=== PATIENT | male | born 1985 | race Caucasian/White ===

== ENCOUNTER 2020-08-05 10:28 | Emergency (ER) | payer MEDICAID, OTHER ==
[~2020-08-05] VITALS: Ht 170.1 cm; Wt 65.9 kg
[2020-08-05 10:35] VITALS: BP 138/89
[2020-08-05] MEDS ORDERED: KETOROLAC 60 MG/2 ML VIAL IM ONE (10:45)
--- NOTE | 2020-08-05 10:54 | ED Lower Extremity ---
General Chief Complaint: Lower Extremity Stated Complaint: RT ANKLE INJ Source: patient Exam Limitations: no limitations History of Present Illness Date Seen by Provider: Aug 05, 2020 Time Seen by Provider: 10:35 Initial Comments Patient presents ER by private conveyance from home with chief complaint that yesterday evening while doing some yard work for his sister he stepped in a soft spot and twisted his right ankle. He has a history of surgery on that right ankle years ago in [place] where he lives. He had an elevated and iced last night and has not taken any medicines for the pain. He rates it as an 8 out of 10. He just wants to make sure the hardware is okay. No other serious medical issues. Allergies and Home Medications Allergies Coded Allergies: No Known Drug Allergies (Unverified , 08/05/20) Home Medications No Active Prescriptions or Reported Meds Patient Home Medication List Home Medication List Reviewed: Yes Review of Systems Constitutional: No chills, No diaphoresis EENTM: No ear discharge, No ear pain Respiratory: No cough, No short of breath Cardiovascular: No chest pain, No palpitations Past Tseskhj-Ednmdr-Slcqnn Hx Patient Social History Alcohol Use: Denies Use Recreational Drug Use: No Recent Foreign Travel: No Contact w/Someone Who Travel: No Physical Exam Vital Signs Vital Signs - First Documented 08/05/20 10:35 Temp 36.7 Pulse 91 Resp 18 B/P (MAP) 138/89 (105) Pulse Ox 100 O2 Delivery Room Air Capillary Refill : Height, Weight, BMI Height: '" Weight: lbs. oz. kg; BMI Method: General Appearance: WD/WN, mild distress HEENT: PERRL/EOMI, pharynx normal Neck: full range of motion, normal inspection Cardiovascular: normal peripheral pulses, regular rate, rhythm Knees: bilateral knee non-tender, bilateral knee normal inspection, bilateral knee normal range of motion Ankles: bilateral ankle normal inspection, bilateral ankle normal range of motion; left ankle no evidence of injury; right ankle bone tenderness (Posterior lateral and medial malleoli are mildly tender to palpation), right ankle other (Negative for swelling, erythema, deformity. Previous healed scars) Feet: bilateral foot non-tender, bilateral foot normal inspection, bilateral foot normal range of motion, bilateral foot no evidence of injury Neurologic/Tendon: normal sensation, normal motor functions, normal tendon functions, responds to pain, no evidence tendon injury Progress/Results/Core Measures Results/Orders My Orders Orders - LIDA TANG Ankle 3 View Right (08/05/20 10:44) Ketorolac Injection (Toradol Injection) (08/05/20 10:45) Medications Given in ED Current Medications Medications Dose Ordered Sig/Shweta Route Start Time Stop Time Status Last Admin Dose Admin Ketorolac Tromethamine 60 mg ONCE ONCE IM 08/05/20 10:45 08/05/20 10:46 DC 08/05/20 10:58 60 MG Vital Signs/I&O 08/05/20 08/05/20 10:35 10:58 Temp 36.7 36.7 Pulse 91 Resp 18 B/P (MAP) 138/89 (105) Pulse Ox 100 O2 Delivery Room Air Progress Progress Note #1: Time: 10:56 Progress Note Toradol for pain. Will encourage ice, wrapping elevation and get some x-rays Progress Note #2: Time: 12:24 Progress Note From the time patient was dismissed to the time that staff could get in and provide him with boots, discharge paperwork, crutches the patient elected to leave. Diagnostic Imaging Diagonstic Imaging: Xray Plain Films/CT/US/NM/MRI: ankle (r) Comments NAME: BLAS MOOENY REC#: [id number] PT STATUS: REG ER : 1985 PHYSICIAN: LIDA TANG MD ADMIT DATE: 08/05/20/ER FS Signed Date of Exam:08/05/20 ANKLE 3 VIEW RIGHT EXAMINATION: Right ankle radiographs, 3 views. COMPARISON: None. HISTORY: 35-year-old male, injury. Right ankle pain. FINDINGS: There are fractures of both syndesmotic screws. There are additional fixation screws in the distal tibia which are intact including medial malleolar screws. There is no tibiotalar joint effusion. There is a tiny calcaneal heel spur. The alignment of the ankle mortise is unremarkable. There is no identified acute fracture. IMPRESSION: 1. Fracture of both syndesmotic screws. Additional fixation screws are intact. 2. No identified acute osseous fracture. 3. Unremarkable alignment of the ankle mortise. Dictated by: Dictated on workstation # [id number] Dict: 08/05/20 1055 Trans: 08/05/20 1111 [facility] [id number] Interpreted by: ANIKA WHEAT MD Electronically signed by: ANIKA WHEAT MD 08/05/20 1111 Reviewed: Reviewed by Me Departure Impression Primary Impression: Ankle sprain Qualified Codes: S93.401A - Sprain of unspecified ligament of right ankle, initial encounter Disposition: HOME, SELF-CARE Condition: Stable Departure-Patient Inst. Decision time for Depature: 11:24 Patient Instructions: Ankle Sprain (DC) Add. Discharge Instructions: You appear to have a sprain of your ankle. There are couple of fractured screws but they do not seem to be recent. The joint is held together appropriately. I would suggest you take a copy of the imaging from today to get your primary care doctor or the surgeon and have him compare it to previous imaging to see if there is any changes. Wear boot for the first 1 to 2 weeks as necessary while walking. Use the crutches as necessary for the next 1 to 2 weeks. Aleve 2 capsules twice a day on a scheduled for pain control. Tylenol 1000 mg every 8 hours as necessary for breakthrough pain. Topical creams such as icy hot, Biofreeze, capsaicin oil etc. as necessary for pain. Keep your ankle elevated above the level of your heart when not in use and rest when possible. Ice applied to your ankle for 20 minutes every 2 hours for the first 2 days can help reduce pain and swelling as well. All discharge instructions reviewed with patient and/or family. Voiced understanding. Scripts No Active Prescriptions or Reported Meds LIDA TANG Aug 05, 2020 10:54
--- NOTE | 2020-08-05 11:07 | Diagnostic Imaging Report ---
EXAMINATION: Right ankle radiographs, 3 views. COMPARISON: None. HISTORY: 35-year-old male, injury. Right ankle pain. FINDINGS: There are fractures of both syndesmotic screws. There are additional fixation screws in the distal tibia which are intact including medial malleolar screws. There is no tibiotalar joint effusion. There is a tiny calcaneal heel spur. The alignment of the ankle mortise is unremarkable. There is no identified acute fracture. IMPRESSION: 1. Fracture of both syndesmotic screws. Additional fixation screws are intact. 2. No identified acute osseous fracture. 3. Unremarkable alignment of the ankle mortise. Dictated by: Dictated on workstation # [id number]
== END 2020-08-05 11:55 | disposition left against medical advice (07) ==
LOC: ER FS 10:32
DX: S93.401A Sprain of unspecified ligament of right ankle, initial encounter (principal); X50.1XXA Overexertion from prolonged static or awkward postures, initial encounter
CPT/HCPCS: 73610; 99283

== ENCOUNTER 2022-01-23 09:59 | Emergency (ER) | payer SELFPAY ==
[~2022-01-23] VITALS: Ht 170 cm; Wt 68.0 kg
[2022-01-23] MEDS ORDERED: IBUPROFEN 800 MG (MOTRIN) TAB PO STA (10:10)
[2022-01-23] MEDS ORDERED: cefTRIAXone 1,000 MG VIAL IM STA (10:10)
[2022-01-23] MEDS ORDERED: HYDROcodone/APAP 5 MG/325 MG (LORTAB) TAB PO STA (10:10)
[2022-01-23] MEDS ORDERED: LIDOCAINE 1% INJ 20 ML VIAL INJ ONE (10:15)
[2022-01-23] MEDS ORDERED: LIDOCAINE 1% INJ 50 ML (XYLOCAINE) VIAL ONE (10:16)
--- NOTE | 2022-01-23 10:18 | ED Integumentary General ---
General Chief Complaint: Skin/Wound Problems Stated Complaint: RT ARM WOUND Source: patient History of Present Illness Date Seen by Provider: January 23, 2022 Time Seen by Provider: 10:02 Initial Comments 36-year-old male presenting with complaints of possible spider bite to his right arm. He states that for the last 2 days he has had swelling and redness on his arm. He has a pustule to the right forearm that he has had some drainage from. He denies fever or chills. He was concerned that he had been bitten by a poisonous spider. He follows with a provider in [facility] but came in today because he was concerned if he waited longer he might lose his arm. Severity: severe Location: extremities (Right arm) Possible Cause: no cause identified Associated Symptoms: No blisters, No change in skin texture, No edema, No fever, No flushing, No headache, No hives, No jaundice, No malaise, No nasal congestion, No numbness, No pallor, No paresthesia, No petechiae, No rash, No sore throat; swelling/mass/lumps; No tingling Allergies and Home Medications Allergies Coded Allergies: No Known Drug Allergies (Unverified , 08/05/20) Patient Home Medication List Home Medication List Reviewed: Yes Sulfamethoxazole/Trimethoprim (Bactrim Ds Tablet) 1 Each Tablet, 1 EACH PO BID Prescribed by: PEBBLES RAM on 01/23/22 1021 Review of Systems Review of Systems Constitutional: No chills, No fever EENTM: no symptoms reported Respiratory: no symptoms reported Cardiovascular: no symptoms reported Gastrointestinal: no symptoms reported Genitourinary: no symptoms reported Musculoskeletal: muscle pain (Right forearm around the wound) Skin: change in color (Redness and pustule to the right forearm) Psychiatric/Neurological: Anxiety Endocrine: No Symptoms Reported Hematologic/Lymphatic: Denies Blood Clots, Denies Easy Bleeding, Denies Easy Bruising Past Wfcstlr-Fnoswf-Ftwcrj Hx Patient Social History Tobacco Use?: Yes Tobacco type used: Cigarettes Substance use?: No Alcohol Use?: No Pt feels they are or have been: Unable to obtain Immunizations Up To Date Tetanus Booster (TDap): Unknown Seasonal Allergies Seasonal Allergies: No Past Medical History Surgery/Hospitalization HX: Seizures, bipolar, schizophrenia Surgeries: Yes (ORIF R ankle 2019) Orthopedic Respiratory: No Cardiac: No Neurological: No Genitourinary: No Gastrointestinal: No Musculoskeletal: Yes Fractures Endocrine: No HEENT: No Cancer: No Psychosocial: No Integumentary: No Blood Disorders: No Physical Exam Vital Signs Vital Signs - First Documented 01/23/22 10:08 Temp 36.5 Pulse 95 Resp 20 B/P (MAP) 132/84 (100) Pulse Ox 98 O2 Delivery Room Air Capillary Refill : General Appearance: WD/WN, no apparent distress HEENT: pharynx normal Neck: non-tender, full range of motion, supple, normal inspection Cardiovascular: normal peripheral pulses, regular rate, rhythm Extremities: normal range of motion, normal capillary refill, inflammation (Redness and swelling to the right mid forearm where he has a pustule) Neurologic/Psychiatric: chicken vaccinator II-XII nml as tested, no motor/sensory deficits, alert, oriented x 3 Skin: warm/dry, other (Redness and swelling to the right mid forearm where he has a pustule that is tender to palpation) Skin Problem Location: upper extremities (Right mid forearm) Skin Problem Character: erythema, other (Pustule to the right mid forearm with surrounding erythema. No fluctuance or induration) Procedures/Interventions I&D : Site: right midforearm Blade Size: 11 I & D Procedure: betadine prep, sterile dressing applied Progress After obtaining verbal consent from the patient the wound was cleaned with Betadine prep swabs. Then 1% plain lidocaine was infiltrated with a total of half an mL. Then using an 11 blade scalpel a small incision was made through the pustule with a small amount of purulent and bloody drainage. A wound culture was obtained and sent to the lab. A clean sterile dressing was applied. Counseled on follow-up and return precautions. Advised to try using warm packs and heat to help with the infection. 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 Counseled on culture results. Progress/Results/Core Measures Results/Orders My Orders Orders - PEBBLES RAM MD Wound Culture (01/23/22 10:10) Wound Dressing-Ed (01/23/22 10:10) Ceftriaxone (Rocephin) (01/23/22 10:10) Hydrocodone/Apap 5/325 Tablet (Lortab 5 (5/31/22 10:10) Ibuprofen Tablet (Motrin Tablet) (01/23/22 10:10) Lidocaine 1% Inj 20 Ml (Xylocaine 1% Inj (01/23/22 10:15) Lidocaine 1% Inj 50 Ml (Xylocaine 1% Inj (01/23/22 10:16) Medications Given in ED Current Medications Medications Dose Ordered Sig/Shweta Route Start Time Stop Time Status Last Admin Dose Admin Lidocaine HCl 2.1 ml ONCE ONCE INJ 01/23/22 10:15 01/23/22 10:16 DC 01/23/22 10:21 2.1 ML Vital Signs/I&O 01/23/22 01/23/22 10:08 10:23 Temp 36.5 36.5 Pulse 95 95 Resp 20 20 B/P (MAP) 132/84 (100) 132/84 Pulse Ox 98 98 O2 Delivery Room Air Room Air Progress Progress Note : Progress Note Verbally consented for I&D procedure and wound culture obtained from the drainage. Sent for culture and started on antibiotics with Rocephin 1 g IM here and Bactrim DS by mouth. Counseled on follow-up and return precautions. Departure Impression Primary Impression: Abscess of right forearm Additional Impression: Cellulitis of right forearm Disposition: HOME, SELF-CARE Condition: Stable Departure-Patient Inst. Decision time for Depature: 10:18 Referrals: NICO MOTT (PCP) Primary Care Physician POPEYE POST DO (Family) Primary Care Physician Patient Instructions: Cellulitis (Skin Infection), Adult ED, Abscess Incision and Drainage ED Add. Discharge Instructions: Keep wound clean and dry for the first 12-24 hours. After that you may wash with soap and water. You may keep the wound covered with a bandage especially if it is draining in the next few days. Take the full course of antibiotics to help treat for infection. Use ibuprofen up to 4 [id number] pills or 800 mg every 8 hours as needed for pain and inflammation. Try to keep your arm elevated above heart level to help with throbbing and pain. Check back with your primary provider for continued concerns. The wound culture from today should be back in 2 to 3 days and if antibiotics need to be changed to have better coverage for the bacteria causing the infection then you will get a call so a new antibiotic could be called to the pharmacy. The infection and redness and swelling may get slightly worse in the next 24 hours until the antibiotics have a chance to start kicking in. After 48 to 72 hours you should start to see improvement. All discharge instructions reviewed with patient and/or family. Voiced understanding. Scripts Sulfamethoxazole/Trimethoprim (Bactrim Ds Tablet) 1 Each Tablet 1 EACH PO BID for abscess/cellulitis for 10 Days, #20 TAB 0 Refills Prov: PEBBLES RAM MD 01/23/22 PEBBLES RMA MD January 23, 2022 10:18
[2022-01-23] MEDS ORDERED: SULF1TAB38 PO (10:21)
[2022-01-23 10:23] VITALS: BP 132/84
== END 2022-01-23 10:41 | disposition home or self-care (01) ==
LOC: EDUNIT# 09:59 → ER FS 10:01
DX: L02.413 Cutaneous abscess of right upper limb (principal); L03.113 Cellulitis of right upper limb; F17.210 Nicotine dependence, cigarettes, uncomplicated
CPT/HCPCS: 87070; 87077; 87186; 87205; 99284

== ENCOUNTER 2022-01-29 09:49 | Emergency (ER) | payer SELFPAY ==
[~2022-01-29] VITALS: Ht 170.2 cm; Wt 68.0 kg
[~2022-01-29 09:49] MED LIST: SULF1TAB38 PO
[2022-01-29] MEDS ORDERED: NS IV 1000 ML 1,000 ML IV STA (10:03)
[2022-01-29 10:09] LABS: BASOPHILS % (AUTO) 0 % (0-10); EOSINOPHILS # (AUTO) 0.2 10^3/uL (0.0-0.3); EOSINOPHILS % (AUTO) 3 % (0-10); HEMATOCRIT 41 % (40-54); HEMOGLOBIN 13.6 g/dL (13.3-17.7); LYMPHOCYTES # (AUTO) 1.7 10^3/uL (1.0-4.0); LYMPHOCYTES % (AUTO) 35 % (12-44); MEAN CORPUSCULAR HEMOGLOBIN 32 pg (25-34); MEAN CORPUSCULAR HGB CONC 33 g/dL (32-36); MEAN CORPUSCULAR VOLUME 95 fL (80-99); MEAN PLATELET VOLUME 9.3 fL (9.0-12.2); MONOCYTES # (AUTO) 0.4 10^3/uL (0.0-1.0); MONOCYTES % (AUTO) 9 % (0-12); NEUTROPHILS # (AUTO) 2.6 10^3/uL (1.8-7.8); NEUTROPHILS % (AUTO) 52 % (42-75); PLATELET COUNT 354 10^3/uL (130-400); WHITE BLOOD COUNT 4.9 10^3/uL (4.3-11.0)
--- NOTE | 2022-01-29 10:13 | ED General ---
General Chief Complaint: Neurological Problems Stated Complaint: SEIZURES Source of Information: Patient, EMS, Old Records History of Present Illness Date Seen by Provider: Jan 29, 2022 Time Seen by Provider: 09:49 Initial Comments 36-year-old male presenting with complaints of seizure activity. He states he has not had any of his Dilantin for seizures for over 2 weeks due to not having the money to buy it. He had recurrent seizure activity this morning and EMS was called by bystander. He has recently had MRSA infection in his right forearm with an abscess. He is taking Bactrim to treat that. He has Zyprexa and Prozac that he takes from a mental health standpoint. He states he gets those medicines from [facility]. He believes that he has a blister pack of some of his Dilantin at his apartment but he has not found it. He also had a superficial cut to his left hand from a broken table this morning. Modifying Factors: worse with Medication (Not had Prozac for over 2 weeks) Associated Systoms: No Chest Pain, No Cough, No Diaphoresis, No Fever/Chills; Headaches; No Loss of Appetite, No Malaise, No Nausea/Vomiting, No Rash; Seizure; No Shortness of Air, No Syncope, No Weakness Allergies and Home Medications Allergies Coded Allergies: No Known Drug Allergies (Unverified , 08/05/20) Patient Home Medication List Home Medication List Reviewed: Yes Sulfamethoxazole/Trimethoprim (Bactrim Ds Tablet) 1 Each Tablet, 1 EACH PO BID Prescribed by: PEBBLES RAM on 01/23/22 1021 Review of Systems Review of Systems Constitutional: No chills, No fever EENTM: dental problems (Widespread dental decay. Patient reports some pain in his mouth after seizure activity this morning) Respiratory: no symptoms reported Cardiovascular: no symptoms reported Gastrointestinal: diarrhea (The stool since taking Bactrim) Genitourinary: no symptoms reported Musculoskeletal: muscle pain (Generalized muscle soreness) Skin: see HPI, lesions (healing abscess to left forearm) Psychiatric/Neurological: No Symptoms Reported Hematologic/Lymphatic: No Symptoms Reported Immunological/Allergic: no symptoms reported Past Mjhdgns-Rzzpbo-Pvysxp Hx Patient Social History Tobacco Use?: Yes Use of E-Cig and/or Vaping dev: Yes E-Cig or Vaping type used: Marijuana Substance use?: Yes Substance type: Marijuana Alcohol Use?: Yes Immunizations Up To Date Tetanus Booster (TDap): Unknown Seasonal Allergies Seasonal Allergies: No Past Medical History Surgery/Hospitalization HX: Seizures, bipolar, schizophrenia, MRSA staph infection Surgeries: Yes (ORIF R ankle 2019) Orthopedic Respiratory: No Cardiac: No Neurological: No Genitourinary: No Gastrointestinal: No Musculoskeletal: Yes Fractures Endocrine: No HEENT: No Cancer: No Psychosocial: No Integumentary: No Blood Disorders: No Physical Exam Vital Signs Vital Signs - First Documented 01/29/22 09:50 Temp 36.6 Pulse 86 Resp 15 B/P (MAP) 119/81 (94) O2 Delivery Room Air Capillary Refill : Height, Weight, BMI Height: '" Weight: lbs. oz. kg; 23.00 BMI Method: General Appearance: No Apparent Distress, WD/WN, Other (slurred speech and s tates he feels tired) Eyes: Bilateral Eye PERRL, Bilateral Eye EOMI HEENT: PERRL/EOMI, Moist Mucous Membranes; No Photophobia; Other (Widespread dental decay with no obvious acute broken tooth from seizures this morning) Neck: Full Range of Motion, Normal Inspection, Non Tender, Supple Respiratory: Chest Non Tender, Lungs Clear, Normal Breath Sounds, No Accessory Muscle Use, No Respiratory Distress Cardiovascular: Regular Rate, Rhythm, Normal Peripheral Pulses Gastrointestinal: Normal Bowel Sounds, No Pulsatile Mass, Non Tender, Soft Extremity: Normal Capillary Refill, No Pedal Edema, Inflammation (Redness and healing abscess to his left forearm from recent MRSA) Neurologic/Psychiatric: Alert, Oriented x3, No Motor/Sensory Deficits, 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 Norm as Tested Skin: Warm/Dry Progress/Results/Core Measures Suspected Sepsis SIRS Temperature: Pulse: Respiratory Rate: Laboratory Tests 01/29/22 10:00: White Blood Count 4.9 Blood Pressure / Mean: Laboratory Tests 01/29/22 10:00: Creatinine 0.89, Platelet Count 354, Total Bilirubin 0.3 Results/Orders Lab Results Laboratory Tests Test 01/29/22 10:00 Range/Units White Blood Count 4.9 4.3-11.0 10^3/uL Red Blood Count 4.30 4.30-5.52 10^6/uL Hemoglobin 13.6 13.3-17.7 g/dL Hematocrit 41 40-54 % Mean Corpuscular Volume 95 80-99 fL Mean Corpuscular Hemoglobin 32 25-34 pg Mean Corpuscular Hemoglobin Concent 33 32-36 g/dL Red Cell Distribution Width 12.5 10.0-14.5 % Platelet Count 354 130-400 10^3/uL Mean Platelet Volume 9.3 9.0-12.2 fL Immature Granulocyte % (Auto) 0 % Neutrophils (%) (Auto) 52 42-75 % Lymphocytes (%) (Auto) 35 12-44 % Monocytes (%) (Auto) 9 0-12 % Eosinophils (%) (Auto) 3 0-10 % Basophils (%) (Auto) 0 0-10 % Neutrophils # (Auto) 2.6 1.8-7.8 10^3/uL Lymphocytes # (Auto) 1.7 1.0-4.0 10^3/uL Monocytes # (Auto) 0.4 0.0-1.0 10^3/uL Eosinophils # (Auto) 0.2 0.0-0.3 10^3/uL Basophils # (Auto) 0.0 0.0-0.1 10^3/uL Immature Granulocyte # (Auto) 0.0 0.0-0.1 10^3/uL Sodium Level 139 135-145 MMOL/L Potassium Level 4.2 3.6-5.0 MMOL/L Chloride Level 104 98-107 MMOL/L Carbon Dioxide Level 24 21-32 MMOL/L Anion Gap 11 5-14 MMOL/L Blood Urea Nitrogen 14 7-18 MG/DL Creatinine 0.89 0.60-1.30 MG/DL Estimat Glomerular Filtration Rate 112 BUN/Creatinine Ratio 16 Glucose Level 100 70-105 MG/DL Calcium Level 8.6 8.5-10.1 MG/DL Corrected Calcium 8.4 L 8.5-10.1 MG/DL Total Bilirubin 0.3 0.1-1.0 MG/DL Aspartate Amino Transf (AST/SGOT) 19 5-34 U/L Alanine Aminotransferase (ALT/SGPT) 15 0-55 U/L Alkaline Phosphatase 50 40-136 U/L Total Protein 7.2 6.4-8.2 GM/DL Albumin 4.2 3.2-4.5 GM/DL Salicylates Level < 0.3 L 5.0-20.0 MG/DL Acetaminophen Level 18 10-30 UG/ML Serum Alcohol < 10 <10 MG/DL My Orders Orders - PEBBLES RAM MD Ua Culture If Indicated (01/29/22 10:03) Cbc With Automated Diff (01/29/22 10:03) Comprehensive Metabolic Panel (01/29/22 10:03) Alcohol (01/29/22 10:03) Drug Screen Stat (Urine) (01/29/22 10:03) Acetaminophen (01/29/22 10:03) Salicylate (01/29/22 10:03) Ed Iv/Invasive Line Start (01/29/22 10:03) Monitor-Rhythm Ecg Trace Only (01/29/22 10:03) Ns Iv 1000 Ml (Sodium Chloride 0.9%) (01/29/22 10:03) Levetiracetam Injection (Keppra Injectio (01/29/22 10:03) Seizure Precautions (01/29/22 10:04) Ketorolac Injection (Toradol Injection) (01/29/22 10:38) Vital Signs/I&O 01/29/22 09:50 Temp 36.6 Pulse 86 Resp 15 B/P (MAP) 119/81 (94) O2 Delivery Room Air Capillary Refill : Progress Note : Progress Note Obtain basic labs and check for alcohol and drugs in his system. Administer normal saline 1 L IV fluid bolus and Keppra 1000 mg IV for seizure activity. Departure Impression Primary Impression: Seizure disorder Disposition: 01 HOME, SELF-CARE Condition: Stable Departure-Patient Inst. Decision time for Depature: 10:39 Referrals: NICO MOTT (PCP) Primary Care Physician POPEYE POST DO (Family) Primary Care Physician Patient Instructions: Seizures, Adult ED Add. Discharge Instructions: Fill a prescription for the Dilantin and take the medicine as prescribed by your provider. Follow up with your regular provider about your seizures and medicine to see if there is anything else they can do to help with you getting the medicine All discharge instructions reviewed with patient and/or family. Voiced understanding. PEBBLES RAM MD Jan 29, 2022 10:13
[2022-01-29 10:24] LABS: ALANINE AMINOTRANSFERASE 15 U/L (0-55); ALBUMIN 4.2 GM/DL (3.2-4.5); ALKALINE PHOSPHATASE 50 U/L (40-136); BILIRUBIN,TOTAL 0.3 MG/DL (0.1-1.0); BUN/CREATININE RATIO 16; CALCIUM 8.6 MG/DL (8.5-10.1); CARBON DIOXIDE 24 MMOL/L (21-32); CHLORIDE 104 MMOL/L (98-107); CREATININE SERUM 0.89 MG/DL (0.60-1.30); GFR ESTIMATED 112; GLUCOSE 100 MG/DL (70-105); POTASSIUM 4.2 MMOL/L (3.6-5.0); SODIUM 139 MMOL/L (135-145); TOTAL PROTEIN 7.2 GM/DL (6.4-8.2)
[2022-01-29 10:25] LABS: ACETAMINOPHEN 18 UG/ML (10-30); SALICYLATE < 0.3 MG/DL (5.0-20.0)
[2022-01-29] MEDS ORDERED: KETOROLAC 30 MG/ML VIAL IVP STA (10:38)
[2022-01-29 10:49] VITALS: BP 131/75
== END 2022-01-29 10:49 | disposition home or self-care (01) ==
LOC: EDUNIT# 09:49 → ER FS 09:49
DX: G40.909 Epilepsy, unspecified, not intractable, without status epilepticus (principal); K02.9 Dental caries, unspecified; L03.114 Cellulitis of left upper limb; T42.0X6A Underdosing of hydantoin derivatives, initial encounter; F17.290 Nicotine dependence, other tobacco product, uncomplicated; Z86.14 Personal history of Methicillin resistant Staphylococcus aureus infection; Z91.120 Patient's intentional underdosing of medication regimen due to financial hardship
CPT/HCPCS: 36415; 80053; 85025; 93041; 99284; G0480 ×3; 80320; 80329

== ENCOUNTER 2023-01-07 03:00 | Emergency (ER) | payer SELFPAY ==
[~2023-01-07] VITALS: Ht 172 cm; Wt 63.5 kg
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
[2023-01-07] MEDS ORDERED: TRIM/SULFAMETH 160/800 (SEPTRA DS) TAB PO STA (03:25)
[2023-01-07] MEDS ORDERED: cefTRIAXone 1,000 MG VIAL (for IV or IM) IM STA (03:25)
[2023-01-07] MEDS ORDERED: SULF1TAB38 PO (03:29)
[2023-01-07] MEDS ORDERED: LIDOCAINE 1% INJ 20 ML VIAL INJ ONE (03:30)
[2023-01-07 03:45] VITALS: BP 128/95
--- NOTE | 2023-01-07 06:22 | Diagnostic Imaging Report ---
INDICATION: Pain and swelling. FINDINGS: [address] are in place. There is fracture of the screws. The more caudal screw has backed out by approximately a centimeter. There is also screw in the medial malleolus as well as distal syndesmotic screw which is intact. Talar dome is intact. Ankle mortise remains symmetric. IMPRESSION: Fracture of the superiormost syndesmotic screws. The more caudal of these two has backed out approximately a centimeter. No acute fracture or dislocation. Dictated by: Dictated on workstation # [id number]
== END 2023-01-07 03:55 | disposition home or self-care (01) ==
LOC: EDUNIT# 03:00 → ER FS 03:03
DX: T84.84XA Pain due to internal orthopedic prosthetic devices, implants and grafts, initial encounter (principal); L03.115 Cellulitis of right lower limb; Z28.310 Unvaccinated for COVID-19
CPT/HCPCS: 73610

== ENCOUNTER 2023-02-25 19:58 | Emergency (ER) | payer SELFPAY ==
[~2023-02-25] VITALS: Ht 160 cm; Wt 59.7 kg
[2023-02-25] MEDS ORDERED: cefTRIAXone IV/IM 1,000 MG in NS (IVPB) 50 ML IV STA (20:11)
[2023-02-25] MEDS ORDERED: NS IV 1000 ML 1,000 ML IV STA ×2 (20:11→21:39)
[2023-02-25] MEDS ORDERED: AZITHROMYCIN 250 MG TAB (ZITHROMAX) PO STA (20:11)
[2023-02-25] MEDS ORDERED: KETOROLAC 15 MG/ML VIAL IVP STA (20:11)
--- NOTE | 2023-02-25 20:18 | ED General ---
General Stated Complaint: CHEST PAIN,FEVER,COUGH,SOB Source of Information: Patient History of Present Illness Date Seen by Provider: Feb 25, 2023 Time Seen by Provider: 20:00 Initial Comments 37-year-old male presenting with complaints of subjective fever, cough, shortness of breath, right-sided chest pain with cough. States this has been going on for several days and was seen at urgent care over the weekend. They had advised him he had a chest infection and prescribed antibiotics but he was not able to pick them up. He was coughing up thick green mucus and felt more pain today so he rode his bicycle here as he is homeless. He states it took over 2 hours to get here to the emergency department. He was having increased pain with cough and breathing as well as subjective fever and chills. He does have a history of methamphetamine abuse and had recently used that as well. He states when he takes Tylenol or ibuprofen his chest pain does get better Timing/Duration: 4-5 Days Severity: Severe Modifying Factors: improves with Medication (Arcz-ttd-ptegqbr ibuprofen and Tylenol help with the chest pain and make it resolve); worse with Movement (Cough and movement makes him have chest pain.) Associated Systoms: Chest Pain (Anterior right-sided chest pain worse with cough and deep breaths), Cough, Fever/Chills (Subjective), Headaches, Loss of Appetite, Malaise, Shortness of Air; No Syncope; Weakness Allergies and Home Medications Allergies Coded Allergies: No Known Drug Allergies (Unverified , 08/05/20) Patient Home Medication List Home Medication List Reviewed: Yes Azithromycin (Azithromycin) 500 Mg Tablet, 500 MG PO DAILY Prescribed by: PEBBLES RAM on 02/25/232150 Ibuprofen (Ibuprofen) 800 Mg Tablet, 800 MG PO Q8H PRN for PAIN Prescribed by: PEBBLES RAM on 02/25/232150 Sulfamethoxazole/Trimethoprim (Bactrim Ds Tablet) 1 Each Tablet, 1 EACH PO BID Prescribed by: PEBBLES RAM on 01/23/22 1021 Sulfamethoxazole/Trimethoprim (Bactrim Ds Tablet) 1 Each Tablet, 1 EACH PO BID Prescribed by: PEBBLES RAM on 01/07/23 0329 Review of Systems Review of Systems Constitutional: see HPI, chills, fever (Subjective) EENTM: nose congestion, throat pain Respiratory: cough, short of breath; No stridor Cardiovascular: see HPI, palpitations Gastrointestinal: No diarrhea, No nausea, No vomiting Genitourinary: No dysuria Musculoskeletal: other (Generalized muscle and joint pain) Skin: no symptoms reported Psychiatric/Neurological: See HPI Past Wnntrji-Turxha-Ukxsgh Hx Patient Social History Tobacco Use?: Yes Substance use?: Yes Substance type: Methamphetamine Immunizations Up To Date Tetanus Booster (TDap): Unknown Seasonal Allergies Seasonal Allergies: No Past Medical History Surgery/Hospitalization HX: Seizures, bipolar, schizophrenia, MRSA staph infection Surgeries: Yes (ORIF R ankle 2019) Orthopedic Respiratory: No Cardiac: No Neurological: No Genitourinary: No Gastrointestinal: No Musculoskeletal: Yes Fractures Endocrine: No HEENT: No Cancer: No Psychosocial: No Integumentary: No Blood Disorders: No Physical Exam Vital Signs Vital Signs - First Documented 02/25/23 20:04 Temp 36.7 Pulse 130 Resp 15 B/P (MAP) 134/80 (98) Pulse Ox 97 O2 Delivery Room Air Capillary Refill : Height, Weight, BMI Height: '" Weight: lbs. oz. kg; 21.00 BMI Method: General Appearance: Anxious, Chronically ill, Mild Distress HEENT: PERRL/EOMI; No Moist Mucous Membranes (Dry mucous membranes) Neck: Full Range of Motion, Normal Inspection, Non Tender, Supple Respiratory: No Chest Non Tender (Tender to palpation on the right anterior chest wall); Normal Breath Sounds, No Accessory Muscle Use, No Respiratory Distress Cardiovascular: Normal Peripheral Pulses, Tachycardia Gastrointestinal: Normal Bowel Sounds, No Pulsatile Mass, Non Tender, Soft Extremity: Normal Capillary Refill, Normal Inspection, No Pedal Edema Neurologic/Psychiatric: Alert, Oriented x3, customs entry clerk II-XII Norm as Tested Skin: Warm/Dry Focused Exam Lactate Level 02/25/23 20:15: Lactic Acid Level 1.60 Lactic Acid Level Laboratory Tests Test 02/25/23 20:15 Lactic Acid Level 1.60 MMOL/L (0.50-2.00) Progress/Results/Core Measures Suspected Sepsis SIRS Temperature: Pulse: Respiratory Rate: Laboratory Tests 02/25/23 20:15: White Blood Count 22.2H Blood Pressure / Mean: 02/25/23 20:15: Lactic Acid Level 1.60 Laboratory Tests 02/25/23 20:15: Creatinine 1.08, Platelet Count 526H, Total Bilirubin 0.4 Results/Orders Lab Results Laboratory Tests Test 02/25/23 20:15 Range/Units White Blood Count 22.2 H 4.3-11.0 10^3/uL Red Blood Count 3.96 L 4.30-5.52 10^6/uL Hemoglobin 12.2 L 13.3-17.7 g/dL Hematocrit 37 L 40-54 % Mean Corpuscular Volume 94 80-99 fL Mean Corpuscular Hemoglobin 31 25-34 pg Mean Corpuscular Hemoglobin Concent 33 32-36 g/dL Red Cell Distribution Width 12.1 10.0-14.5 % Platelet Count 526 H 130-400 10^3/uL Mean Platelet Volume 8.8 L 9.0-12.2 fL Immature Granulocyte % (Auto) 0 % Neutrophils (%) (Auto) 85 H 42-75 % Lymphocytes (%) (Auto) 8 L 12-44 % Monocytes (%) (Auto) 7 0-12 % Eosinophils (%) (Auto) 0 0-10 % Basophils (%) (Auto) 0 0-10 % Neutrophils # (Auto) 18.9 H 1.8-7.8 10^3/uL Lymphocytes # (Auto) 1.7 1.0-4.0 10^3/uL Monocytes # (Auto) 1.6 H 0.0-1.0 10^3/uL Eosinophils # (Auto) 0.0 0.0-0.3 10^3/uL Basophils # (Auto) 0.0 0.0-0.1 10^3/uL Immature Granulocyte # (Auto) 0.1 0.0-0.1 10^3/uL Neutrophils % (Manual) 90 % Lymphocytes % (Manual) 6 % Monocytes % (Manual) 4 % Sodium Level 137 135-145 MMOL/L Potassium Level 4.5 3.6-5.0 MMOL/L Chloride Level 97 L 98-107 MMOL/L Carbon Dioxide Level 27 21-32 MMOL/L Anion Gap 13 5-14 MMOL/L Blood Urea Nitrogen 17 7-18 MG/DL Creatinine 1.08 0.60-1.30 MG/DL Estimat Glomerular Filtration Rate 90 BUN/Creatinine Ratio 16 Glucose Level 103 70-105 MG/DL Lactic Acid Level 1.60 0.50-2.00 MMOL/L Calcium Level 9.9 8.5-10.1 MG/DL Corrected Calcium 10.3 H 8.5-10.1 MG/DL Total Bilirubin 0.4 0.1-1.0 MG/DL Aspartate Amino Transf (AST/SGOT) 23 5-34 U/L Alanine Aminotransferase (ALT/SGPT) 40 0-55 U/L Alkaline Phosphatase 95 40-136 U/L C-Reactive Protein 51.42 H <0.50 MG/DL Total Protein 8.2 6.4-8.2 GM/DL Albumin 3.5 3.2-4.5 GM/DL My Orders Orders - PEBBLES RAM MD Cbc With Automated Diff (02/25/23 20:10) Comprehensive Metabolic Panel (02/25/23 20:10) Blood Culture (02/25/23 20:10) Chest 1 View Ap/Pa Only (02/25/23 20:10) Ed Iv/Invasive Line Start (02/25/23 20:10) Monitor-Rhythm Ecg Trace Only (02/25/23 20:10) Crp Fs (02/25/23 20:10) Lactic Acid Analyzer (02/25/23 20:10) Ns Iv 1000 Ml (Sodium Chloride 0.9%) (02/25/23 20:11) Ketorolac Injection (Toradol Injection) (02/25/23 20:11) Ceftriaxone Iv/Im (Rocephin Iv/Im) (02/25/23 20:11) Azithromycin Tablet (Zithromax Tablet) (02/25/23 20:11) Manual Differential (02/25/23 20:15) Ns Iv 1000 Ml (Sodium Chloride 0.9%) (02/25/23 21:39) Vital Signs/I&O 02/25/23 02/25/23 20:04 22:03 Temp 36.7 Pulse 130 103 Resp 15 16 B/P (MAP) 134/80 (98) 126/86 Pulse Ox 97 99 O2 Delivery Room Air Room Air Capillary Refill : Progress Note #1: Progress Note Potential diagnosis of sepsis, dehydration, pneumonia, viral infection. With his tachycardia and heart rate in 130s this may be due to dehydration, infection, methamphetamine abuse. Establish IV access and administer normal saline 1 L IV fluid bolus for hydration, Toradol 15 mg IV for pain and inflammation. Sputum culture and blood cultures. Send labs for complete blood count, comprehensive metabolic profile, blood cultures with lactic acid. Obtain 1 view chest x-ray to look for signs of acute infiltrate, pneumothorax, hemothorax, mass. UA and UDS to check for infection and illicit substances. Progress Note #2: Time: 20:21 Progress Note On my personal interpretation and review his 1 view chest xray shows right lower lobe infiltrate. No priors for comparison. Proceed with IV Rocephin 1 gm and Azithromycin 500 mg po and NS 1 Liter IVF bolus. His oxygen saturation is 98- 100% on room air. Progress Note #3: Progress Note Complete blood count showed elevated white blood cells of 22.2 with a left shift. Lactic acid was normal at 1.6. Creatinine was normal at 1.08. He did have an elevated CRP consistent with inflammation, infection, methamphetamine abuse. His chest x-ray was read out by the radiologist as having a right lower lobe infiltrate. Patient continues to have oxygen saturation of 98 to 100% on room air. He has heart rate that was improving with hydration. He is now down to 100 to 110 bpm instead of the 130 to 140 bpm. He has had his initial antibiotics of Rocephin 1 g IV and Zithromax 500 mg p.o. He also had Toradol to help with his chest wall pain which has improved his symptoms. Will repeat another liter of normal saline IV fluid bolus. Plan on discharging home with prescription for azithromycin 500 mg a day x5 days being sent to the [facility] pharmacy. Stressed importance of following up and having the prescription filled on Saturday when the pharmacy reopens. His dose of antibiotics here will carry him through Saturday night into Saturday morning when he could get the prescriptions. 2202 Prior to 2nd Liter of NS IVF bolus finishing infusing he advised the nursing staff that he had to leave immediately. He reports he is staying with a friend across [facility] here in [place]. Counseled to get prescriptions from [facility] on Saturday when pharmacy re-opens. Push fluids and rest as well. If worsening or not improving return or seek medical care where he could be admitted to a hospital if not improving with antibiotics for pneumonia. Diagnostic Imaging Diagonstic Imaging: Xray Plain Films/CT/US/NM/MRI: chest Comments [facility] [place], [place] NAME: BLAS MOONEY REC#: [id number] PT STATUS: REG ER : 1985 PHYSICIAN: PEBBLES RAM MD ADMIT DATE: 02/25/23/ER FS Signed Date of Exam:02/25/23 CHEST 1 VIEW AP/PA ONLY INDICATION: Lower respiratory infection EXAM: Portable chest at 8:20 PM FINDINGS: There is infiltrate present in the right lower lung. Left lung is clear. There are no effusions. IMPRESSION: Right lower lung consistent with pneumonia. Dictated by: Dictated on workstation # [id number] Dict: 02/25/232023 Trans: 02/25/232144 [facility] [id number] Interpreted by: POPEYE STRICKLAND MD Electronically signed by: POPEYE STRICKLAND MD 02/25/232144 Reviewed: Reviewed by Me Departure Impression Primary Impression: Pneumonia of right lung due to infectious organism Qualified Codes: J18.9 - Pneumonia, unspecified organism Additional Impressions: Muscle strain of anterior chest wall Upper respiratory infection with cough and congestion Tachycardia Disposition: 01 HOME, SELF-CARE Condition: Improved Departure-Patient Inst. Decision time for Depature: 21:50 Referrals: NICO MOTT (PCP) Primary Care Physician POPEYE POST DO (Family) Primary Care Physician Patient Instructions: Pneumonia, Adult ED, Muscle Strain ED, Cough, Adult ED Add. Discharge Instructions: Try to stay well-hydrated and drink plenty of fluids. Take the full course of antibiotics to treat for pneumonia. You may use the ibuprofen alternating with Tylenol if needed to help control chest wall pain. If having worsening symptoms or more shortness of breath you could return or be seen in the clinic for additional treatment. If you are worsening despite the antibiotics you might require transfer to the hospital where you could be admitted. Scripts Ibuprofen (Ibuprofen) 800 Mg Tablet 800 MG PO Q8H PRN for PAIN for 10 Days, #30 TAB 0 Refills Prov: PEBBLES RAM MD 02/25/23 Azithromycin (Azithromycin) 500 Mg Tablet 500 MG PO DAILY for Pneumonia for 5 Days, #5 TAB 0 Refills Prov: PEBBLES RAM MD 02/25/23 PEBBLES RAM MD Feb 25, 2023 20:18
[2023-02-25 20:19] LABS: BASOPHILS % (AUTO) 0 % (0-10); EOSINOPHILS % (AUTO) 0 % (0-10); HEMATOCRIT 37 % (40-54); HEMOGLOBIN 12.2 g/dL (13.3-17.7); LYMPHOCYTES # (AUTO) 1.7 10^3/uL (1.0-4.0); LYMPHOCYTES % (AUTO) 8 % (12-44); MEAN CORPUSCULAR HEMOGLOBIN 31 pg (25-34); MEAN CORPUSCULAR HGB CONC 33 g/dL (32-36); MEAN CORPUSCULAR VOLUME 94 fL (80-99); MEAN PLATELET VOLUME 8.8 fL (9.0-12.2); MONOCYTES # (AUTO) 1.6 10^3/uL (0.0-1.0); MONOCYTES % (AUTO) 7 % (0-12); NEUTROPHILS # (AUTO) 18.9 10^3/uL (1.8-7.8); NEUTROPHILS % (AUTO) 85 % (42-75); PLATELET COUNT 526 10^3/uL (130-400); WHITE BLOOD COUNT 22.2 10^3/uL (4.3-11.0)
--- NOTE | 2023-02-25 20:27 | Diagnostic Imaging Report ---
INDICATION: Lower respiratory infection EXAM: Portable chest at 8:20 PM FINDINGS: There is infiltrate present in the right lower lung. Left lung is clear. There are no effusions. IMPRESSION: Right lower lung consistent with pneumonia. Dictated by: Dictated on workstation # [id number]
[2023-02-25 20:38] LABS: ALBUMIN 3.5 GM/DL (3.2-4.5); BILIRUBIN,TOTAL 0.4 MG/DL (0.1-1.0); CALCIUM 9.9 MG/DL (8.5-10.1); CREATININE SERUM 1.08 MG/DL (0.60-1.30); POTASSIUM 4.5 MMOL/L (3.6-5.0); TOTAL PROTEIN 8.2 GM/DL (6.4-8.2)
[2023-02-25 20:45] LABS: LYMPHOCYTES % (MANUAL) 6 %; MONOCYTES % (MANUAL) 4 %; NEUTROPHILS % (MANUAL) 90 %
[2023-02-25] MEDS ORDERED: AZIT500T9 PO (21:51)
[2023-02-25] MEDS ORDERED: IBUP-1780 PO (21:51)
[2023-02-25 22:03] VITALS: BP 126/86
== END 2023-02-25 22:06 | disposition home or self-care (01) ==
LOC: EDUNIT# 19:58 → ER FS 20:00
DX: S29.011A Strain of muscle and tendon of front wall of thorax, initial encounter (principal); J16.8 Pneumonia due to other specified infectious organisms; J06.9 Acute upper respiratory infection, unspecified; R00.0 Tachycardia, unspecified; R91.8 Other nonspecific abnormal finding of lung field; Z28.310 Unvaccinated for COVID-19; X58.XXXA Exposure to other specified factors, initial encounter
CPT/HCPCS: 36415; 71045; 80053; 83605; 85007; 85027; 86141; 87040; 93041